=== PATIENT | female | born 2000 | race Hispanic/Latino ===

== ENCOUNTER 2020-05-10 11:45 | Emergency (ER) | payer OTHER, SELFPAY ==
--- OUTSIDE RECORDS SUMMARY | 2020-05-10 11:47 | XMS REPORT | Summary of Care ---
:2000 Author Organization [facility] Address [address] [place] [id number] Care Team Providers Name Role Phone Ryann Manning Primary Care Provider Encounter Details Date Type Department Care Team Description 04/17/2020 Letter (Out) [facility] Family Teofilo Manning [address] [place] [phone] Allergies No Known Allergiesdocumented as of this encounter (statuses as of 04/26/2020) Medications No known medicationsdocumented as of this encounter (statuses as of 04/26/2020) Active Problems Problem Noted Date Short stature 03/28/2011 documented as of this encounter (statuses as of 04/26/2020) Social History Tobacco Use Types Packs/Day Years Used Date Never Smoker Alcohol Use Drinks/Week oz/Week Comments Not Asked Sex Assigned at Date Recorded Not on file Job Start Date Occupation Industry Not on file Not on file Not on file Travel History Travel Start Travel End No recent travel history available. documented as of this encounter Last Filed Vital Signs Not on filedocumented in this encounter Plan of Treatment Health Maintenance Due Date Last Done Comments VARICELLA VACCINES (1 of 2 - 2-dose 12/31/1999 childhood series) MENINGOCOCCAL B VACCINES (1 of 2 - 2008 Risk Bexsero 2-dose series) DTaP,Tdap,and Td Vaccines ( - 2009 Tdap) HPV VACCINES (1 - Female 2-dose 2009 series) Depression Screening 2010 WELL CARE VISIT: 12-21 YEARS 2010 (yearly) CHLAMYDIA SCREENING 2014 PAP SMEAR 12/31/2019 INFLUENZA VACCINE (#1) 2020 MENINGOCOCCAL VACCINE Aged Out No longer eligible based on patient's age to complete this topic PNEUMOCOCCAL 0-64 YEARS COMBINED Aged Out No longer eligible based on SERIES patient's age to complete this topic documented as of this encounter Results Not on filedocumented in this encounter Additional Health Concerns Infection Onset Date Last Indicated Resolved Time COVID-19 Rule Out 04/17/2020 04/17/2020 04/19/2020 3: 19 PM CDT documented as of this encounter Insurance Payer Benefit Plan / Subscriber ID Effective Phone Address [facility] xxxxxxxxx 2013-Prese 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
--- OUTSIDE RECORDS SUMMARY | 2020-05-10 11:47 | XMS REPORT | Continuity of Care Document ---
:2000 Author Organization [facility] t Address [address] [place] [address] Care Team Providers Name Role Phone Lab, Fam Pob I Attending Clinician Unavailable Ryann Manning Attending Clinician Problems This patient has no known problems. Allergies, Adverse Reactions, Alerts This patient has no known allergies or adverse reactions. Medications This patient has no known medications. Procedures This patient has no known procedures. Encounters Start End Encounter Admission Attending Care Care Encounter Source Date/Time Date/Time Type Type Clinicians Facility Department ID 2020-04-17 2020-04-17 Laboratory Lab, [facility] [id number] 14:51:57 15:11:57 Only Fam Pob I Health [id number] [place] [id number] Professio [phone] nal [address] 2020-04-17 2020-04-17 PASCUAL [facility] [id number] 00:00:00 00:00:00 (Out) Veronica [facility] [id number] [place] [id number] Professio [phone] nal [address] Results This patient has no known results.
--- OUTSIDE RECORDS SUMMARY | 2020-05-10 11:47 | XMS REPORT | Summary of Care ---
:2000 Author Organization [facility] Address [address] [place] [address] Care Team Providers Name Role Phone Ryann Manning Primary Care Provider Reason for Visit Reason Comments Exposure LAB Encounter Details Date Type Department Care Team Description 04/17/2020 Laboratory Only [facility] Family Jewell Chapa PA [address] [place] [phone] Exposure to Covid-19 [facility], Adc Fam Pob I Virus (Primary Dx) [address] [place] [phone] Allergies No Known Allergiesdocumented as of this encounter (statuses as of 04/17/2020) Medications No known medicationsdocumented as of this encounter (statuses as of 04/17/2020) Active Problems Problem Noted Date Short stature 03/28/2011 documented as of this encounter (statuses as of 04/17/2020) Social History Tobacco Use Types Packs/Day Years [...] filedocumented in this encounter Plan of Treatment Name Type Priority Associated Diagnoses Order S chedule COVID-19 (PCR MOLECULAR LAB Routine Exposure to Covid -19 Expected: 04/17/2020, TESTING) Virus Expires: 2020 documented as of this encounter Results Not on filedocumented in this encounter Visit Diagnoses Diagnosis Exposure to Covid-19 Virus - Primary documented in this encounter Additional Health Concerns Infection Onset Date Last Indicated Resolved Time COVID-19 Rule Out 04/17/2020 04/17/2020 documented as of this encounter Advance Directives Type Date Recorded 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
[2020-05-10] MEDS ORDERED: HYDROCODONE/APAP 5/325 MG TAB ONE (12:44)
--- NOTE | 2020-05-10 12:49 | RAD REPORT ---
EXAM DESCRIPTION: RAD - Ankle Right 3 View - 05/10/2020 12:24 pm CLINICAL HISTORY: Right ankle pain FINDINGS: Minimally displaced oblique lateral malleolar fracture 6 millimeter bony density lies adjacent to the medial malleolus which could be an acute or chronic av ulsed fragment. Mild widening of the medial clear space may indicate a ligamentous injury Exostosis extends off of the distal fibular diaphysis
--- NOTE | 2020-05-10 13:27 | ER ---
Nurse's Notes [facility] Name: Trena Landeros Age: 19 yrs Sex: Female : 2000 Arrival Date: 05/10/2020 Time: 11:47 Bed 13 Private MD: Diagnosis: Displaced fracture of lateral malleolus of right fibula;Avulsion fracture of medial malleolus of right tibia Presentation: 05/10 11:48 Chief complaint: Patient states: right ankle pain that began 0400 today. Pt states "I aa5 twisted my right leg". 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 11:48 Coronavirus screen: Patient denies a cough. Patient denies shortness of breath or aa5 difficulty breathing. Patient denies measured and/or subjective temperature greater than 100.4F prior to today's visit. Patient denies travel on a cruise ship or to a country the [facility] currently lists as an affected area. Patient denies contact with known and/or suspected case of COVID-19. Proceed with normal triage. Ebola Screen: Patient negative for fever greater than or equal to 101.5 degrees Fahrenheit, and additional compatible Ebola Virus Disease symptoms. Initial Sepsis Screen: Does the patient meet any 2 criteria? No. Patient's initial sepsis screen is negative. Does the patient have a suspected source of infection? No. Patient's initial sepsis screen is negative. Risk Assessment: Do you want to hurt yourself or someone else? Patient reports no desire to harm self or others. Onset of symptoms was May 10, 2020. 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 - Social history:: Smoking status: Patient denies any tobacco usage or history of. Screenin:58 Abuse screen: Denies threats or abuse. Denies injuries from another. Nutritional ca1 screening: No deficits noted. Tuberculosis screening: No symptoms or risk factors identified. Fall Risk None identified. Assessment: 11:58 General: Appears in no apparent distress. comfortable, Behavior is calm, cooperative, ca1 appropriate for age. Pain: Complains of pain in right ankle. Neuro: Level of Consciousness is awake, alert, obeys commands, Oriented to person, place, time, situation. Derm: Skin is intact, is healthy with good turgor, Skin is pink, warm \\T\\ dry. Musculoskeletal: Circulation, motion, and sensation intact. Capillary refill < 3 seconds, Range of motion: limited in right ankle. 12:39 Reassessment: Patient appears in no apparent distress at this time. Patient and/or ca1 family updated on plan of care and expected duration. Pain level reassessed. Patient is alert, oriented x 3, equal unlabored respirations, skin warm/dry/pink. 13:30 Reassessment: Patient appears in no apparent distress at this time. Patient is alert, ca1 oriented x 3, equal unlabored respirations, skin warm/dry/pink. Vital Signs: 11:48 BP 117 / 80; Pulse 100; Resp 16 S; Temp 97.0(TE); Pulse Ox 99% on R/A; Weight 52.16 kg aa5 (R); Height 5 ft. 7 in. (170.18 cm) (R); Pain 2/10; 12:39 BP 103 / 77; Pulse 92; Resp 15 S; Pulse Ox 100% on R/A; ca1 13:30 BP 94 / 55; Pulse 79; Resp 15 S; Pulse Ox 99% on R/A; ca1 11:48 Body Mass Index 18.01 (52.16 kg, 170.18 cm) aa5 ED Course: 11:47 Patient arrived in ED. ag5 11:48 Arm band placed on. aa5 11:49 Caty Nance, PAIGE is Primary Nurse. ca1 11:54 Joni Rosales NP is PHCP. pm1 11:54 Charlie Haider MD is Attending Physician. pm1 11:56 Triage completed. aa5 11:58 Patient has correct armband on for positive identification. Bed in low position. Call ca1 light in reach. Side rails up X 1. Pulse ox on. NIBP on. 12:24 Ankle Right 3 View XRAY In Process Unspecified. EDMS 12:40 No provider procedures requiring assistance completed. Patient did not have IV access ca1 during this emergency room visit. 13:20 Orthoglass splint: Posterior short lleg splint applied on right leg. stirrup splint dh4 applied on right leg. 13:36 Crutch training done. ca1 Administered Medications: 12:36 Drug: [place] 5 mg-325 mg 1 tabs {Note: rass 0.} Route: PO; ca1 13:29 Follow up: Response: No adverse reaction; Pain is decreased; RASS: Alert and Calm (0) ca1 Outcome: 13:26 Discharge ordered by MD. pm1 13:44 Discharged to home via wheelchair, with crutches, with family. ca1 13:44 Condition: stable 13:44 Discharge instructions given to patient, Instructed on discharge instructions, follow up and referral plans. no drinking with medication, no driving heavy equipment, medication usage, Demonstrated understanding of instructions, follow-up care, medications, Prescriptions given X 1. 13:45 Patient left the ED. ca1 Signatures: Dispatcher [employer] EDMS Kerri Henderson RN RN aa5 Joni Rosales, STEVEN LINEN TECH pm1 Caty Nance RN RN ca1 Leno Paiz 5 Toni Blake 4 Corrections: (The following items were deleted from the chart) 11:57 11:53 Arm band placed on aa5 aa5
--- NOTE | 2020-05-10 13:27 | EDPHYS ---
Physician Documentation [facility] Name: Trena Landeros Age: 19 yrs Sex: Female : 2000 Arrival Date: 05/10/2020 Time: 11:47 Bed 13 Private MD: ED Physician Charlie Haider HPI: 05/10 12:05 This 19 yrs old Female presents to ER via Ambulatory with complaints of Fall pm1 Injury, Ankle Injury. 12:05 The patient presents with pain, that is acute. The complaints affect the right ankle. pm1 Onset: The symptoms/episode began/occurred last night. Context: resulted from stepped and felling into a ditch, The patient can partially bear weight on the affected extremity. the patient is able to ambulate, with moderate difficulty. Associated signs and symptoms: Pertinent positives: swelling, Pertinent negatives: calf tenderness, fever. Modifying factors: The symptoms are alleviated by elevation of extremity, ice packs, the symptoms are aggravated by weight bearing, movement. Severity of symptoms: in the emergency department the symptoms are unchanged. The patient has not experienced similar symptoms in the past. The patient has not recently seen a physician, and does not have an established primary care provider. 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 - Social history:: Smoking status: Patient denies any tobacco usage or history of. ROS: 12:05 Constitutional: Negative for fever, chills, and weight loss, Cardiovascular: Negative pm1 for chest pain, palpitations, and edema, Respiratory: Negative for shortness of breath, cough, wheezing, and pleuritic chest pain. 12:05 Skin: Negative for injury, rash, and discoloration, Neuro: Negative for headache, weakness, numbness, tingling, and seizure. 12:05 MS/extremity: Positive for pain, swelling, tenderness, of the right ankle. 12:05 All other systems are negative. pm1 Exam: 12:05 Constitutional: This is a well developed, well nourished patient who is awake, alert, pm1 and in no acute distress. Head/Face: Normocephalic, atraumatic. Neck: Trachea midline, no thyromegaly or masses palpated, and no cervical lymphadenopathy. Supple, full range of motion without nuchal rigidity, or vertebral point tenderness. No Meningismus. 12:05 Back: No spinal tenderness. No costovertebral tenderness. Full range of motion. 12:05 Skin: Warm, dry with normal turgor. Normal color with no rashes, no lesions, and no evidence of cellulitis. 12:05 Cardiovascular: Exam negative for acute changes, Rate: normal, Rhythm: regular, Pulses: no pulse deficits are appreciated. 12:05 Respiratory: Exam negative for acute changes, respiratory distress, shortness of breath. 12:05 Abdomen/GI: Exam negative for acute changes, Inspection: abdomen appears normal, Palpation: abdomen is soft and non-tender, in all quadrants. 12:05 Musculoskeletal/extremity: Extremities: grossly normal except: noted in the right ankle: swelling, tenderness. 12:05 Neuro: Exam negative for acute changes, Orientation: is normal, Mentation: is normal, Motor: is normal, moves all fours, Sensation: is normal, no obvious gross deficits. Vital Signs: 11:48 BP 117 / 80; Pulse 100; Resp 16 S; Temp 97.0(TE); Pulse Ox 99% on R/A; Weight 52.16 kg aa5 (R); Height 5 ft. 7 in. (170.18 cm) (R); Pain 2/10; 12:39 BP 103 / 77; Pulse 92; Resp 15 S; Pulse Ox 100% on R/A; ca1 13:30 BP 94 / 55; Pulse 79; Resp 15 S; Pulse Ox 99% on R/A; ca1 11:48 Body Mass Index 18.01 (52.16 kg, 170.18 cm) aa5 Procedures: 13:26 Splinting: Splint applied to right ankle using Orthoglass splint, applied by tech. pm1 Examined by me, post splint application: neurovascular intact, 2+ distal pulses palpable, brisk capillary refill noted, Patient tolerated well. MDM: 11:54 Patient medically screened. pm1 12:35 Data reviewed: vital signs. Data interpreted: Pulse oximetry: on room air is 99 %. pm1 Interpretation: normal. Counseling: I had a detailed discussion with the patient and/or guardian regarding: radiology results, the need for outpatient follow up, for definitive care, a orthopedic surgeon, to return to the emergency department if symptoms worsen or persist or if there are any questions or concerns that arise at home. 05/10 12:00 Order name: Ankle Right 3 View XRAY; Complete Time: 12:50 pm1 05/10 12:34 Order name: Splint - Ankle: Orthoglass: Stirrup; Complete Time: 13:29 pm1 05/10 12:34 Order name: Splint - Ankle: Posterior; Complete Time: 13:29 pm1 05/10 12:34 Order name: Crutches; Complete Time: 13:29 pm1 Administered Medications: 12:36 Drug: [place] 5 mg-325 mg 1 tabs {Note: rass 0.} Route: PO; ca1 13:29 Follow up: Response: No adverse reaction; Pain is decreased; RASS: Alert and Calm (0) ca1 Disposition: 05/11 05:37 Co-signature as Attending Physician, Charlie Haider MD I agree with the assessment and zeyad plan of care. Disposition: 05/10/20 13:26 Discharged to Home. Impression: Displaced fracture of lateral malleolus of right fibula, Avulsion fracture of medial malleolus of right tibia. - Condition is Stable. - Discharge Instructions: Ankle Fracture, Cast or Splint Care, Adult, Crutch Use. - Prescriptions for Tylenol- Codeine #3 300-30 mg Oral Tablet - take 2 tablets by ORAL route every 6 hours As needed; 20 tablet. - Work release form, Medication Reconciliation Form, Thank You Letter, Antibiotic Education, Prescription Opioid Use form. - Follow up: Emergency Department; When: As needed; Reason: Worsening of condition. Follow up: Private Physician; When: 2 - 3 days; Reason: Recheck today's complaints, Continuance of care, Re-evaluation by your physician. - Problem is new. - Symptoms have improved. Signatures: Dispatcher [employer] EDCharlie Sen MD MD cha Calderon, Audri, RN RN aa5 Joni Rosales, STAFF SUBMARINE WARFARE OFFICER STAFF SUBMARINE WARFARE OFFICER pm1 Caty Nance RN RN ca1 Corrections: (The following items were deleted from the chart) 05/10 13:45 13:26 05/10/2020 13:26 Discharged to Home. Impression: Displaced fracture of lateral ca1 malleolus of right fibula; Avulsion fracture of medial malleolus of right tibia. Condition is Stable. Discharge Instructions: Ankle Fracture, Cast or Splint Care, Adult, Crutch Use. Prescriptions for Tylenol-Codeine #3 300-30 mg Oral Tablet - take 2 tablets by ORAL route every 6 hours As needed; 20 tablet. and Forms are Medication Reconciliation Form, Thank You Letter, Antibiotic Education, Prescription Opioid Use. Follow up: Emergency Department; When: As needed; Reason: Worsening of condition. Follow up: Private Physician; When: 2 - 3 days; Reason: Recheck today's complaints, Continuance of care, Re-evaluation by your physician. Problem is new. Symptoms have improved. pm1
[2020-05-10 14:09] VITALS: TEMP 97
[2020-05-10 14:11] VITALS: BP 94/55; O2SAT 99
== END 2020-05-10 13:45 | disposition home or self-care (01) ==
LOC: ER 11:45
PROC: 2W3QX1Z Immobilization of Right Lower Leg using Splint (ICD-10-PCS; principal; 2020-05-10)
DX: S82.61XA Displaced fracture of lateral malleolus of right fibula, initial encounter for closed fracture (principal); S82.51XA Displaced fracture of medial malleolus of right tibia, initial encounter for closed fracture; W17.89XA Other fall from one level to another, initial encounter; Y93.89 Activity, other specified; Y92.89 Other specified places as the place of occurrence of the external cause
CPT/HCPCS: 99284